=== PATIENT | female | born 1970 | race Caucasian/White ===

== ENCOUNTER 2016-06-08 23:05 | Emergency (ER) | payer OTHER ==
[2016-06-08] MEDS ORDERED: METHYLPREDNISOLONE SOD SUCC/PF 125 MG/2 ML VIAL ONE (23:20)
[2016-06-08] MEDS ORDERED: METHYLPREDNISOLONE SOD SUCC/PF 40 MG/ML VIAL IV ONE (23:22)
--- NOTE | 2016-06-08 23:23 | ERNOTE ---
Allergy Symptoms - ER Presenting Symptoms: face swelling Time Seen by Provider: 06/08/16 23:14 Source: patient Exam Limitations: no limitations Immunizations: IMMUNIZATION HX Immunizations Up to Date Yes History of Influenza Vaccine Yes Hx Pneumococcal Vaccination Yes Allergies/Adverse Reactions: Allergies No Known Allergies Allergy (Verified 02/05/12 14:42) Home Medications: HOME MEDICATIONS Diclofenac Sodium/Misoprostol [Arthrotec EC 75 mg-200 Mcg Tab] 75 mg PO TID 05/04 [Last Taken 01/23/12 04:00 75] Etanercept [Enbrel] 50 mg SQ Q7D 06/08/16 [Last Taken Unknown] - History of Present Illness Narrative: swelling of lips since yesterday. Also reddish rash all over body. Rash itches. No new products. pt has been taking Benadryl for this. Review of Systems - Review of Systems Constitutional: Present: no symptoms reported EYE: Present: no symptoms reported ENT: Present: See HPI Respiratory: Present: no symptoms reported Cardiology: Present: no symptoms reported - Patient's Past Medical History Patient History - Medical: Rheumatoid Arthritis Patient History - Cardiac/Respiratory: No pertinent hx Patient History - Cancer: No Hx of Cancer Patient History - Surgical Procedures: , T & A Patient History - Other: None LMP (females 10-50): 3 weeks - Social History Living Situations: home Psych History: No pertinent hx Smoking Status: Current every day smoker Alcohol Use: none Drug Use: none - Immunizations Immunizations Up to Date: Yes Hx Pneumococcal Vaccination: Yes History of Influenza Vaccine: Yes Physical Exam - Physical Exam General Appearance: Present: wd/wn, alert, no apparent distress Ears, Nose, Throat: Present: other - minimal edema of lower lip. No stridor, airway is very good. Respiratory: Present: no respiratory distress, normal breath sounds Cardiovascular/Chest: Present: regular rate, rhythm, no murmur Skin Exam: Present: other - pt has hives all over ED Progress - Vital Signs Patient's Vital Signs:: I have reviewed the patient's vital signs. Vital Signs: Vital Signs 06/08/16 06/08/16 23:09 23:18 Temperature 36.8 C Respiratory 18 18 Rate Blood Pressure 138/86 O2 Sat by Pulse 97 98 Oximetry - Progress/Reassessment Chief Complaint: Allergic Reaction Departure Clinical Impression: Allergic reaction Qualifiers: Encounter type: initial encounter Qualified Code(s): T78.40XA - Allergy, unspecified, initial encounter - Departure Disposition: Home self-care Condition: Good Instructions: Angioedema, Ebhp-[id number]
[2016-06-09 00:05] VITALS: BP 121/79
--- OUTSIDE RECORDS SUMMARY | 2016-06-09 00:09 | XMS REPORT | Continuity of Care Document ---
:1970 Author Organization [facility] [place] [address] Care Team Providers Name Role Phone Provider, Not In System Primary Care Provider Unavailable Source Comments This disclosure is being made pursuant to the [employer] program and maynot contain all information available regarding this patient.[facility] Active Allergies and Adverse Reactions Allergen Noted Date Severity Reactions Comments No Known Allergies 12/23/2013 Other (See Comments) Current Medications Be aware that medications may not be up to date as of this document. Alwaysverify current medications with the patient. Prescription Sig. Disp. Refills Start Date End Date Status ibuprofen Take 2 Active (ADVIL,MOTRIN) 200 tablets by MG tablet mouth nightly. pantoprazole Take 1 tablet 06/23/2012 Active (PROTONIX) 40 MG by mouth tablet daily. etanercept (ENBREL Inject 1 mL 12 Syringe 3 05/26/2016 Active SURECLICK) 50 MG/ML into the skin SOAJ auto-injector once a week. HYDROcodone-acetami Take 1 tablet 120 tablet 0 05/27/2016 Active nophen (NORCO) by mouth 5-325 MG per tablet every 6 (six) hours as needed. diclofenac sodium Take 1 tablet 180 tablet 1 05/28/2016 08/26/2016 Active (VOLTAREN) 75 MG EC by mouth 2 tablet (two) times daily. etanercept (ENBREL Inject 1 mL 3.92 mL 11 12/19/2013 05/22/2016 Discontinued SURECLICK) 50 MG/ML into the skin injection once a week. HYDROcodone-acetami Take 1 tablet 120 tablet 0 05/01/2016 05/27/2016 Discontinued nophen (NORCO) by mouth 5-325 MG per tablet every 6 (six) hours as needed. etanercept (ENBREL Inject 1 mL 12 Syringe 3 05/22/2016 05/26/2016 Discontinued SURECLICK) 50 MG/ML into the skin SOAJ auto-injector once a week. etanercept (ENBREL Inject 1 mL 12 Syringe 3 05/26/2016 05/26/2016 Discontinued SURECLICK) 50 MG/ML into the skin SOAJ auto-injector once a week. Active Problems Problem Noted Date Seropositive rheumatoid arthritis (HCC) 03/26/2015 Long-term use of immunosuppressant medication 03/26/2015 Rheumatoid arthritis(714.0) 01/16/2014 Encounter for long-term (current) use of other medications 01/16/2014 Most Recent Encounters Date Type Specialty Providers Description 05/28/2016 Telephone Rheumatology Gifty Simpson, Other RN 05/27/2016 Refill Rheumatology Shae De La O RN 05/26/2016 Refill Rheumatology Gifty Simpson, RN 05/26/2016 Telephone Rheumatology Gifty Simpson, Medication Refill RN 05/22/2016 Telephone Rheumatology Gifty Simpson, Medication Refill RN 05/01/2016 Refill Rheumatology Shae De La O RN 04/22/2016 Office Visit Rheumatology Tien Weston MD Seropositive rheumatoid arthritis (HCC) (Primary Dx); Long-term use of immunosuppressant medication 03/28/2016 Telephone Rheumatology Gifty Simpson, Medication Refill RN Social History Tobacco Use Types Packs/Day Years Used Date Current Every Day Smoker Tobacco Cessation:Ready to Quit: No; Counseling Given: Yes Comments: Alcohol Use Drinks/Week oz/Week Comments No Alcoholic Drinks/day: ALCOHOL USE: NON-DRINKER Last Filed Vital Signs Vital Sign Reading Time Taken Blood Pressure 139/74 04/22/2016 9:31 AM MATERIAL RECLAIMER Pulse 79 04/22/2016 9:31 AM MATERIAL RECLAIMER Temperature - - Respiratory Rate - - Height 1.676 m (5' 6") 03/26/2015 1:17 PM MATERIAL RECLAIMER Weight 85.639 kg (188 lb 12.8 oz) 04/22/2016 9:31 AM MATERIAL RECLAIMER Body Mass Index 30.49 04/22/2016 9:31 AM MATERIAL RECLAIMER Oxygen Saturation - - Plan of Care Date Type Specialty Providers Description 10/20/2016 Appointment Rheumatology Tien Weston MD [address] [place] [id number] [phone]) Health Maintenance Due Date Last Done Comments Pneumococcal Medium Risk 19-64 yo (1 of 1 - PPSV23) 12/01/1987 Tetanus/Pertussis (1 - Tdap) 12/01/1987 Pap Smear 1989 Influenza Immunization (#1) 2015 Results from Last 3 Months Not on file
--- OUTSIDE RECORDS SUMMARY | 2016-06-09 00:09 | XMS REPORT | Continuity of Care Document ---
:1970 Author Organization [facility] ([facility]) Address [address] [place] [address] Phone [phone] Care Team Providers Name Role Phone Damian Cantu Primary Care Provider [phone] Source Comments This disclosure is being made pursuant to the Care Everywhere program, applicable federal and state laws, and may not contain all informaitonavailable regarding this patient.[facility] ([facility]) Active Allergies and Adverse Reactions No Known Allergies Current Medications Prescription Sig. Disp. Refills Start Date End Date Status diclofenac 75 mg EC Take 75 mg by mouth 3 Active tablet times daily. Indications: OSTEOARTHRITIS pantoprazole 40 mg EC Take 40 mg by mouth Active tablet daily. Indications: GASTRIC ULCER IBUPROFEN PO Take 200 mg by mouth Active as needed. acetaminophen 325 mg Take 325 mg by mouth Active tablet as needed. Active Problems Problem Noted Date Rheumatoid arthritis(714.0) 03/29/2012 Knee pain 03/29/2012 Soft tissue mass 03/29/2012 Social History Tobacco Use Types Packs/Day Years Used Date Current Some Day Smoker Cigarettes 1 20 Smokeless Tobacco: Never Used Tobacco Cessation:Ready to Quit: No Comments: Last Filed Vital Signs Vital Sign Reading Time Taken Blood Pressure 126/72 03/29/2012 8:56 AM RESEARCH INVESTIGATOR Pulse 96 03/29/2012 8:56 AM RESEARCH INVESTIGATOR Temperature 36.7 C (98.1 F) 03/29/2012 8:56 AM RESEARCH INVESTIGATOR Respiratory Rate - - Height 1.676 m (5' 6") 03/29/2012 8:56 AM RESEARCH INVESTIGATOR Weight 87.181 kg (192 lb 3.2 oz) 03/29/2012 8:56 AM RESEARCH INVESTIGATOR Body Mass Index 31.04 03/29/2012 8:56 AM RESEARCH INVESTIGATOR Oxygen Saturation - - Plan of Care Health Maintenance Due Date Last Done Comments Hepatitis B Vaccine (1 of 3 - Primary Series) 1970 Tdap Vaccine 12/01/1979 Lipid Disorder Screening 1986 MMR Vaccine 1986 Td Vaccine 1986 Pneumococcal Vaccine (1 of 1 - PPSV23) 12/01/1987 Cervical Cancer Screening 1998 Mammogram 2008 Influenza Vaccine: Seasonal (#1) 10/22/2015 Results from Last 3 Months Not on file
== END 2016-06-09 00:06 | disposition home or self-care (01) ==
LOC: ER 23:05
DX: T78.40XA Allergy, unspecified, initial encounter (principal); Z72.0 Tobacco use; M06.9 Rheumatoid arthritis, unspecified